=== PATIENT | male | born 1950 | race Caucasian/White ===

== ENCOUNTER → 2017-08-16 | Outpatient (CLI) | payer BC ==
--- NOTE | 2017-08-16 14:36 | RADIOLOGY IMAGING REPORT ---
FACILITY: [facility] PATIENT NAME: Nito Spivey : 1950 MR: [id number] V: [id number] EXAM DATE: ORDERING PHYSICIAN: CLINTON PEÑA TECHNOLOGIST: Location: [facility] Patient: Nito Spivey : 1950 Visit/Account:[id number] Date of Sevice: 08/16/2017 Exam type: CHEST PA AND LAT History: Pneumonia check, cough fever shortness of breath Comparison: None. Findings: The lungs are free of acute effusions, infiltrates or edema. The cardiac silhouette is normal in siz e. Suggest dextroconvex scoliosis of the thoracic spine. IMPRESSION: 1. No acute cardiopulmonary process is seen Report Dictated By: Ashley Muñoz MD at 08/16/2017 2:29 PM Report E-Signed By: Ashley Muñoz MD at 08/16/2017 2:30 PM WSN:[id number]
== END ==
LOC: RAD 13:34
PROVIDERS: ATTEND Family Medicine
DX: J40 Bronchitis, not specified as acute or chronic (principal)
CPT/HCPCS: 71046

== ENCOUNTER → 2018-05-13 | Outpatient (CLI) | payer MEDICARE, BC ==
--- NOTE | 2018-05-13 14:17 | EKG ---
FACILITY: [facility] PATIENT NAME: TENISHA OQUENDO : [id number] MR: [id number] V: [id number] EXAM DATE: ORDERING PHYSICIAN: CLINTON PEÑA TECHNOLOGIST: RADHA Chowdary Reason : IRREGULAR HEART BEAT Blood Pressure : / mmHG Vent. Rate : 064 BPM Atrial Rate : 064 BPM P-R Int : 186 ms QRS Dur : 084 ms QT Int : 406 ms P-R-T Axes : 033 034 005 degrees QTc Int : 418 ms Normal sinus rhythm Normal ECG No previous ECGs available Confirmed by JUANJOSE BRODERICK ([id number]) on 05/13/2018 6:13:36 PM Referred By: Confirmed By:JUANJOSE BRODERICK
== END ==
LOC: RESP 14:06
PROVIDERS: ATTEND Family Medicine
DX: I49.9 Cardiac arrhythmia, unspecified (principal)
CPT/HCPCS: 93005

== ENCOUNTER → 2018-05-14 | Outpatient (CLI) | payer MEDICARE, BC ==
[2018-05-14 10:54] LABS: PLATELET COUNT, AUTOMATED 93 K/uL (150-450)
[2018-05-14 11:33] LABS: LDL CHOLESTEROL 163 mg/dl
== END ==
LOC: LAB 10:37
PROVIDERS: ATTEND Family Medicine
DX: E78.5 Hyperlipidemia, unspecified (principal); R73.01 Impaired fasting glucose
CPT/HCPCS: 36415; 82040; 82247; 82310; 82374; 82435; 82465; 82565; 82947; 83036; 83718; 84075; 84132; 84153; 84155; 84295; 84443; 84450; 84460; 84478; 84520; 85025

== ENCOUNTER → 2018-05-19 | Outpatient (CLI) | payer MEDICARE, BC ==
--- NOTE | 2018-05-22 01:07 | RT HOLTER TEST ---
FACILITY: [facility] PATIENT NAME: TENISHA OQUENDO : [id number] MR: [id number] V: [id number] EXAM DATE: ORDERING PHYSICIAN: CLINTON PEÑA TECHNOLOGIST: CLAUDIA Hook-up date: 2018-05-19 11:11:00 Duration: 46:19:00 Test Indications: ARRHYTHMIA Medications: N/A 889349 QRS complexes 704 Ventricular ectopics which represent <1 % of total QRS comp. 1261 Supraventricular ectopics which represent <1 % of total QRS comp. * Paced QRS complexes which represent % of total QRS comp. VENTRICULAR ECTOPY 646 Isolated 0 Bigeminal Cycles 21 Couplets 3 Runs 16 Beats in Runs 8 Beats LONGEST at 121 BPM at 15:39:34 2018-05-19 5 Beats FASTEST at 169 BPM at 15:39:26 2018-05-19 SUPRAVENTRICULAR ECTOPY 1069 Isolated 88 Couplets 3 Runs 16 Beats in Runs 7 Beats LONGEST at 156 BPM at 17:29:45 2018-05-19 5 Beats FASTEST at 171 BPM at 19:19:14 2018-05-19 HEART RATES 54 MIN at 04:38:05 2018-05-21 86 AVG 197 MAX at 14:29:10 2018-05-19 LONGEST RR 0.536 secs at 15:56:42 2018-05-19 S-T LEVELS Channel 1 -12.800 mm MIN at 11:11:00 2018-05-19 -12.800 mm MAX at 11:11:00 2018-05-19 Channel 2 -12.800 mm MIN at 11:11:00 2018-05-19 -12.800 mm MAX at 11:11:00 2018-05-19 Channel 3 -12.800 mm MIN at 11:11:00 2018-05-19 -12.800 mm MAX at 11:11:00 2018-05-19 Sinus rhythm dominates test; however. Extended (over 1 hour) run of SVT, several shorter episodes of sustained SVT. Occasional PVC's generally occuring in singlet or doublet with single run of 5 beats, and concentrate d shortly after termination of SVT. Positive stress test. Confirmed by Germán Juan ([id number]) on 05/22/2018 1:08:25 AM Referred By: Overread By: Germán Levin
== END ==
LOC: RESP 03:21
PROVIDERS: ATTEND Family Medicine
DX: I47.1 Supraventricular tachycardia (principal)
CPT/HCPCS: 93225; 93226

== ENCOUNTER → 2018-07-10 | Outpatient (CLI) | payer MEDICARE, BC | LOC: US 00:46 | PROVIDERS: ATTEND Internal Medicine | DX: I51.7 Cardiomegaly (principal); I47.1 Supraventricular tachycardia | CPT/HCPCS: 93306 ==